=== PATIENT | female | born 1990 | race Caucasian/White ===

== ENCOUNTER 2023-01-30 21:20 | Emergency (ER) | payer OTHER ==
[~2023-01-30] VITALS: Ht 160 cm; Wt 85.8 kg
[2023-01-30 23:07] VITALS: BP 125/96
== END 2023-01-30 23:08 | disposition home or self-care (01) ==
LOC: ED 21:20
DX: L27.2 Dermatitis due to ingested food (principal); Z91.011 Allergy to milk products
CPT/HCPCS: 96372; 99282; J1100